=== PATIENT | male | born 1990 | race African-American/Black ===

== ENCOUNTER 2022-08-06 11:09 | Inpatient (IN) | payer OTHER ==
[2022-08-06 12:21] VITALS: BMI 26.2
[2022-08-06] MEDS ORDERED: NICOTINE POLACRILEX 2 MG GUM BUC PRN (12:32)
[2022-08-06] MEDS ORDERED: chlordiazePOXIDE HCL 25 MG CAPSULE PO PRN (13:20)
[2022-08-06] MEDS ORDERED: ACETAMINOPHEN 325 MG TABLET (FP) PO PRN ×2 (13:20)
[2022-08-06] MEDS ORDERED: IBUPROFEN 400 MG TABLET (FP) PO PRN (13:20)
[2022-08-06] MEDS ORDERED: IBUPROFEN 600 MG TABLET (FP) PO PRN (13:20)
[2022-08-06] MEDS ORDERED: BISMUTH SUBSALICYLATE 524 MG/30 ML PO PRN (13:20)
[2022-08-06] MEDS ORDERED: MAGNESIUM HYDROX 2400MG/30ML ORAL SUSPENSION 30 ML CUP PO PRN (13:20)
[2022-08-06] MEDS ORDERED: LOPERAMIDE HCL 2 MG CAPSULE PO PRN (13:20)
[2022-08-06] MEDS ORDERED: MAG HYDROX/AL HYDROX/SIMETH 30 ML UNIT-DOSE CUP PO PRN (13:20)
[2022-08-06] MEDS ORDERED: DICYCLOMINE HCL 10 MG CAPSULE PO PRN (13:20)
[2022-08-06] MEDS ORDERED: NALOXONE HCL (KLOXXADO) 8 MG SPRAY NS PRN (13:20)
[2022-08-06] MEDS ORDERED: MAGNESIUM CITRATE 300 ML BOTTLE PO PRN (13:20)
[2022-08-06] MEDS ORDERED: ONDANSETRON *ODT* 4 MG TABLET SL PRN (13:20)
[2022-08-06] MEDS ORDERED: BENZOCAINE/MENTHOL (CHLORASEPTIC ) LOZENGE MM PRN (13:20)
[2022-08-06] MEDS: METHOCARBAMOL 500 MG TABLET PO PRN (14:10)
[2022-08-06] MEDS: chlordiazePOXIDE HCL 25 MG CAPSULE PO SCH ×3 (14:10→23:30)
[2022-08-06] MEDS: hydrOXYzine PAMOATE 25 MG CAPSULE (FP) PO SCH ×3 (14:10→23:30)
[2022-08-06] MEDS: PRENATAL VITAMINS W/ FOLIC ACID TABLET (FP) PO SCH (14:13)
[2022-08-06] MEDS: NICOTINE 21 MG/24 HOURS TOPICAL PATCH TD SCH (14:13)
[2022-08-06] MEDS ORDERED: COLLOIDAL OATMEAL 1 BAR EACH TP PRN (14:16)
[2022-08-06] MEDS: NICOTINE 10 MG CARTRIDGE (INHALER) IH PRN (15:18)
[2022-08-06] MEDS: MELATONIN 5 MG TABLETS PO SCH (23:29)
[2022-08-06] MEDS: THIAMINE HCL 100 MG TABLET (FP) PO SCH (23:30)
[2022-08-07] MEDS: chlordiazePOXIDE HCL 25 MG CAPSULE PO SCH ×5 (06:10→22:53)
[2022-08-07] MEDS: hydrOXYzine PAMOATE 25 MG CAPSULE (FP) PO SCH ×5 (06:10→22:52)
[2022-08-07] MEDS: NICOTINE 10 MG CARTRIDGE (INHALER) IH PRN ×2 (06:47→13:05)
[2022-08-07] MEDS: cloNIDine HCL 0.1 MG TABLET PO PRN ×3 (10:11→18:21)
[2022-08-07] MEDS: NICOTINE 21 MG/24 HOURS TOPICAL PATCH TD SCH (10:11)
[2022-08-07] MEDS: METHOCARBAMOL 500 MG TABLET PO PRN (10:11)
[2022-08-07] MEDS: PRENATAL VITAMINS W/ FOLIC ACID TABLET (FP) PO SCH (10:12)
[2022-08-07 12:35] LABS: HEMATOCRIT 50.1 % (35.4-49); HEMOGLOBIN 16.2 GM/dL (11.7-16.9); MCH 28.9 pg (25.7-33.7); MCHC 32.4 g/dl (32.0-35.9); MEAN CELL VOLUME 89.3 fl (80-96); MEAN PLT VOLUME 9.6 fl (7.5-11.1); PLATELET COUNT 249 10^3/uL (134-434); RBC 5.61 M/mm3 (4.00-5.60); RDW 14.1 % (11.9-15.9); WHITE BLOOD COUNT 5.5 K/mm3 (4.0-10.0)
[2022-08-07 12:40] LABS: ALBUMIN 3.7 g/dl (3.4-5.0); BLOOD UREA NITROGEN 10.7 mg/dL (7-18)
[2022-08-07 12:41] LABS: CALCIUM 9.3 mg/dL (8.5-10.1)
[2022-08-07 12:44] LABS: BILIRUBIN,TOTAL 0.6 mg/dL (0.2-1)
[2022-08-07 13:01] LABS: TOT PROT 7.2 g/dl (6.4-8.2)
[2022-08-07] MEDS: NICOTINE POLACRILEX 4 MG GUM BUC PRN (17:47)
[2022-08-07] MEDS: THIAMINE HCL 100 MG TABLET (FP) PO SCH (22:53)
[2022-08-07] MEDS: MELATONIN 5 MG TABLETS PO SCH (22:54)
[2022-08-08] MEDS ORDERED: chlordiazePOXIDE HCL 10 MG CAPSULE PO PRN
[2022-08-08] MEDS: hydrOXYzine PAMOATE 25 MG CAPSULE (FP) PO SCH ×5 (06:16→23:58)
[2022-08-08] MEDS: chlordiazePOXIDE HCL 10 MG CAPSULE PO SCH ×4 (06:16→23:58)
[2022-08-08] MEDS: NICOTINE 10 MG CARTRIDGE (INHALER) IH PRN ×2 (08:48→17:48)
[2022-08-08] MEDS: NICOTINE POLACRILEX 4 MG GUM BUC PRN ×4 (08:49→19:34)
[2022-08-08] MEDS: PRENATAL VITAMINS W/ FOLIC ACID TABLET (FP) PO SCH (10:12)
[2022-08-08] MEDS: NICOTINE 21 MG/24 HOURS TOPICAL PATCH TD SCH (10:12)
[2022-08-08] MEDS: METHOCARBAMOL 500 MG TABLET PO PRN (12:41)
[2022-08-08] MEDS: cloNIDine HCL 0.1 MG TABLET PO PRN (12:41)
[2022-08-08] MEDS ORDERED: cloNIDine HCL 0.1 MG TABLET PO ONE (15:30)
[2022-08-08] MEDS ORDERED: DOXYCYCLINE HYCLATE 100 MG TABLET PO SCH (18:00)
[2022-08-08] MEDS: THIAMINE HCL 100 MG TABLET (FP) PO SCH (23:58)
[2022-08-08] MEDS: MELATONIN 5 MG TABLETS PO SCH (23:58)
[2022-08-09] MEDS ORDERED: chlordiazePOXIDE HCL 10 MG CAPSULE PO SCH (05:00)
[2022-08-09] MEDS: hydrOXYzine PAMOATE 25 MG CAPSULE (FP) PO SCH (06:36)
[2022-08-09 06:42] VITALS: BP 141/98; PULSE 68; RESP 18; TEMP 97.1
[2022-08-09] MEDS: NICOTINE 10 MG CARTRIDGE (INHALER) IH PRN (06:44)
[2022-08-10] MEDS ORDERED: chlordiazePOXIDE HCL 10 MG CAPSULE PO ONE (05:00)
== END 2022-08-09 08:50 | disposition home or self-care (01) | DRG 897 ==
LOC: YASAS 11:09 → Y6N 13:09
PROVIDERS: ADMIT Allergy & Immunology; ATTEND Surgery
PROC: HZ2ZZZZ Detoxification Services for Substance Abuse Treatment (ICD-10-PCS; principal; 2022-08-06)
DX: F10.230 Alcohol dependence with withdrawal, uncomplicated (principal); F16.10 Hallucinogen abuse, uncomplicated; F17.210 Nicotine dependence, cigarettes, uncomplicated; I10 Essential (primary) hypertension; R76.8 Other specified abnormal immunological findings in serum; Z59.02 Unsheltered homelessness; Z88.0 Allergy status to penicillin
CPT/HCPCS: 36415; 80053; 85027; 86593; 86780; 93005; 93010; C9803-CS; Q0162; U0003; U0005